=== PATIENT | male | born 1965 | race Hispanic/Latino ===

== ENCOUNTER → 2020-01-29 | Outpatient (CLI) | payer BC ==
--- NOTE | 2020-01-29 16:24 | Diagnostic Imaging Report ---
EXAM: US ABDOMEN COMPLETE DATE: 01/29/2020 4:00 PM INDICATION: Abdominal pain COMPARISON: None TECHNIQUE: Transverse and longitudinal vaz scale and color doppler sonographic images of the upper abdomen were obtained. FINDINGS: LIVER 16.1 cm in the right midclavicular line. Mildly increased echogenicity of the liver with normal contour, no masses. SPLEEN 12.7 cm in maximum diameter. Normal echogenicity, no masses. GALLBLADDER 2 cm echogenic calculus at the gallbladder neck. No gallbladder wall thickening, distension, or pericholecystic fluid. Negative reported sonographic Avila's sign. The gallbladder wall measures 3mm BILE DUCTS No intra nor extra-hepatic biliary dilation. Common bile duct measures 3mm PANCREAS: Visualized portions are normal. RIGHT KIDNEY: 11.4 cm Echogenicity: Normal Collecting System: No hydronephrosis Stones: None Cyst/Mass: None LEFT KIDNEY: 11.9 cm Echogenicity: Normal Collecting System: No hydronephrosis Stones: None Cyst/Mass: None VESSELS: Aorta: Visualized portions are within normal size limits Inferior Vena Cava: Visualized portions are normal Main Portal Vein: 0.7 cm, normal size with hepatopetal flow. FREE FLUID: None IMPRESSION: Cholelithiasis without sonographic evidence of cholecystitis. Mild diffuse hepatic steatosis. Signed by: Dante Bourgeois MD on 01/29/2020 4:21 PM
== END ==
LOC: US 15:18
PROVIDERS: ATTEND Family Medicine
DX: R10.9 Unspecified abdominal pain (principal)
CPT/HCPCS: 76700